=== PATIENT | male | born 1985 | race Caucasian/White ===

== ENCOUNTER 2019-01-12 17:15 | Emergency (ER) | payer OTHER ==
--- NOTE | 2019-01-12 17:38 | EDPHY ---
HPI/HX/ROS/PE/MDM Narrative: CHIEF COMPLAINT: LTA, head injury while skiing HPI: The patient is a 33 y/o male arriving via EMS as a LTA following a head injury with LOC while skiing at [place] this afternoon. He does not remember the incident but was told by multiskill operator that a bystander described him striking a tree. No other information regarding the impact or length of unconsciousness is available. He primarily complains of head pain at the site of an abrasion on his right forehead and mild soreness on his right thigh underlying his pocket where his phone was resting at the time of the injury. He feels very slightly nauseated currently. He denies vision changes, weakness or paresthesias, neck pain, abdominal pain, chest pain, extremity injuries, or other complaints. He is able to stand and bear weight. He is typically healthy. REVIEW OF SYSTEMS: Aside from elements discussed in the HPI, a comprehensive 10-point review of systems was reviewed and is negative. PMH: Jaw surgery, HIV+ - Truvada SOCIAL HISTORY: Friend at bedside. Lives in [place]. Employed at . PHYSICAL EXAM: General:Patient is alert, in no acute distress. Head: Abrasion and contusion to right forehead. ENT:Eyes are normal to inspection. ENT inspection normal. Neck: Normal inspection. Full range of motion. Respiratory:No respiratory distress. Breath sounds normal bilaterally. Cardiovascular: Regular rate and rhythm. Strong peripheral pulses. Normal cap refill. Abdomen:The abdomen is nontender to palpation. There are no peritoneal signs. Back: Normal to inspection. No tenderness to palpation. Skin: Normal color. No rash. Warm and dry. Extremities: Normal appearance. Full range of motion. Neuro: Oriented x3. Normal motor function. Normal sensory function. ED Course: This is a 33 y/o male who presents with a head injury with positive LOC secondary to a fall and possible head strike while skiing this afternoon. He has an abrasion and hematoma to his right forehead, but otherwise an atraumatic exam. No focal neuro deficits. Due to loss of consciousness, amnesia, and visible head trauma I recommended neuroimaging, which he agrees to. Plan for head CT, wound care. Head CT negative per Dr. Choudhury. Reassessed patient and discussed findings. Exam is unchanged. Plan for discharge home with standard concussion care and follow up instructions. Return precautions discussed. He is comfortable with this plan. - Data Points Imaging Results: Imaging Impressions Head CT 01/12/19 17:40 Impression: There is no acute intracranial abnormality identified on this unenhanced CT evaluation. If there is further clinical concern regarding the patient's symptoms, MR imaging is suggested, if not otherwise contraindicated. Findings were discussed with Coleman Conley MD at 18:21, on 01/12/2019. Imaging: Discussed imaging studies w/ inbound call center representative Radiologist, I viewed and interpreted images myself General Initial Vital Signs: Initial Vital Signs Temperature (C) 36.9 C 01/12/19 17:27 Heart Rate 83 01/12/19 17:27 Respiratory Rate 16 01/12/19 17:27 Blood Pressure 133/99 H 01/12/19 17:27 O2 Sat (%) 97 01/12/19 17:27 O2 Delivery Mode Room Air Allergies/Adverse Reactions: NSAIDS (Non-Steroidal Anti-Inflamma Allergy (Verified 01/12/19 17:26) Home Medications: Medication Instructions Recorded NICK-D 12 HOUR TABLET 01/12/19 Finasteride 01/12/19 Truvada 100 mg-150 mg Tablet 01/12/19 Departure - Departure Disposition: Home, Routine, Self-Care Clinical Impression: Abrasion Concussion Qualifiers: Encounter type: initial encounter Loss of consciousness presence/duration: with LOC of unspecified duration Qualified Code(s): S06.0X9A - Concussion with loss of consciousness of unspecified duration, initial encounter Condition: Good Instructions: Concussion (ED) Additional Instructions: 1. Tylenol and ibuprofen as directed on the packaging as needed for pain over the next few days. Expect to feel more sore tomorrow. 2. Cognitive rest while symptoms are present. Limit screen time including phones , computers, TV, video games. Slowly advance activity as tolerated. 3. Physical rest for at least 10-14 days or longer if symptoms persist. Avoid any activities that could lead to repeat head injury during this time period ( ex. contact sports, skiing, bicycling, etc.). 4. Follow up with head injury specialist if symptoms have not completely resolved over the next 1-2 weeks. 5. Return to the ED for severe pain, weakness or numbness on one side of your body, difficulty walking, vision changes, difficulty with speech, confusion, or other worsening of condition. Referrals: Falguni Strong MD [Medical Doctor] - As per Instructions Report Scribed for: Coleman Conley Report Scribed by: Aydee Knowles Date of Report: 01/12/19 Time of Report: 17:29 Physician Review and Approval Statement: Portions of this note were transcribed by an ED scribe. I personally performed the history, physical exam, and medical decision making; and confirm the accuracy of the information in the transcribed note.
[2019-01-12] MEDS ORDERED: ACETAMINOPHEN 500 MG TAB PO ONE (18:44)
[2019-01-12 18:58] VITALS: BP 133/84
== END 2019-01-12 18:55 | disposition home or self-care (01) ==
LOC: EDUNIT#
DX: S06.0X9A Concussion with loss of consciousness of unspecified duration, initial encounter (principal); S00.81XA Abrasion of other part of head, initial encounter; V00.322A Snow-skier colliding with stationary object, initial encounter; Y93.23 Activity, snow (alpine) (downhill) skiing, snowboarding, sledding, tobogganing and snow tubing; Y92.828 Other wilderness area as the place of occurrence of the external cause